=== PATIENT | female | born 1955 | race Caucasian/White ===

== ENCOUNTER → 2024-05-29 | Outpatient (CLI) | payer MEDICARE, SELFPAY ==
[2024-05-29 09:15] LABS: Alanine Aminotransferase 23 U/L (10-49); Albumin, Serum 4.5 gm/dL (3.4-4.8); Alkaline Phosphatase 77 U/L (46-116); Anion Gap 8 (7-16); Aspartate Amino Transferase 24 U/L (0-34); BUN/Creatinine Ratio 20 Ratio (12-20); Bilirubin,Total 0.5 mg/dL (0.3-1.2); Blood Urea Nitrogen 14 mg/dL (9-23); Calcium 9.6 mg/dL (8.3-10.6); Calcium (Corrected) 9.6 mg/dL (8.5-10.1); Carbon Dioxide 26.6 mMol/L (20.0-31.0); Cardiac Risk Estimate 4.3 RATIO (3.7-5.6); Chloride 112 mMol/L (98-107); Cholesterol 146 mg/dL (132-200); Creatinine (Component) 0.7 mg/dL (0.6-1.3); Globulin 2.2 gm/dL (2.3-3.5); Glucose 94 mg/dL (74-106); HDL Cholesterol 34 mg/dL (40-60); LDL Cholesterol,Calculated 67 mg/dL (0-130); Osmolality,Calculated 292 (275-295); Potassium 4.4 mMol/L (3.4-5.1); Sodium 147 mMol/L (136-145); Total Protein 6.7 gm/dL (5.7-8.2); Triglycerides 225 mg/dL (30-150); eGFR > 60 See Note
[2024-05-29 11:50] LABS: OBS Performed By LAB; OBS QC OK? Yes
[2024-05-29 14:32] LABS: Occult Blood, Stool Negative (Negative)
[2024-05-29 14:33] LABS: OBS Developer Lot # 551749
== END | disposition home or self-care (01) ==
LOC: COPL 06:38
PROVIDERS: PCP Family Medicine; Referring Provider Family Medicine; Visit Provider Family Medicine
DX: Z13.1 Encounter for screening for diabetes mellitus (principal); Z12.11 Encounter for screening for malignant neoplasm of colon; E78.1 Pure hyperglyceridemia
CPT/HCPCS: 36415; 80053; 80061; 82270

== ENCOUNTER → 2024-07-05 | Outpatient (BNVA) | payer MEDICARE, SELFPAY | END | disposition home or self-care (01) | PROVIDERS: PCP Family Medicine; Referring Provider Family Medicine; Visit Provider Urology | DX: N39.46 Mixed incontinence (principal); Z87.440 Personal history of urinary (tract) infections; I10 Essential (primary) hypertension; E66.9 Obesity, unspecified; Z68.29 Body mass index [BMI] 29.0-29.9, adult; E78.00 Pure hypercholesterolemia, unspecified | CPT/HCPCS: 81003; 99212; G0463 ==

== ENCOUNTER → 2024-12-06 | Outpatient (BNVA) | payer MEDICARE, SELFPAY | END | disposition home or self-care (01) | PROVIDERS: PCP Family Medicine; Referring Provider Family Medicine; Visit Provider Urology | DX: N39.46 Mixed incontinence (principal); N39.0 Urinary tract infection, site not specified; I10 Essential (primary) hypertension; E66.9 Obesity, unspecified; Z68.25 Body mass index [BMI] 25.0-25.9, adult; Z98.84 Bariatric surgery status | CPT/HCPCS: 81003; 99212; G0463 ==

== ENCOUNTER → 2025-01-01 | Outpatient (CLI) | payer MEDICARE, SELFPAY ==
--- NOTE | 2025-01-01 14:00 | XR_ITS ---
Examination: Breast ultrasound complete, bilateral Date and time of exam: January 01, 2025, 1342 hours, comparison January 08, 2024 INDICATIONS: Mammogram December 29, 1999 2415 mm nodule outer left breast nipple level on the MLO view Technique: Real-time grayscale ultrasonographic imaging bilateral breasts, including all 4 quadrants as well as nipple retroareolar and axillary regions. Findings: Sonographic images right breast 4:00 glandular tissue 10:00 cyst 3 x 3 mm 3.6 cm axillary lymph node Sonographic images left breast 12:00 cyst 3 x 3 mm 3:00 nodule lobular margins 5 x 7 mm 4:00 glandular tissue 11:00 cyst 3 x 3 mm IMPRESSION: BI-RADS Category 3: Probably benign findings 1 additional 6-month bilateral breast sonography follow-up is needed to document stability of glandular tissue and nodules described above
--- NOTE | 2025-01-01 15:00 | XR_ITS ---
Examination: Diagnostic digital mammography, bilateral Computer aided detection 3-D breast Tomosynthesis, bilateral Date and time of exam: January 01, 2025, 1406 hours, compared to mammograms dating to December 23, 2021 INDICATIONS: 15 mm nodule outer left breast on mammogram December 22, 2022 Technique: Nonmagnified MLO, CC views of the breasts to been obtained, reconstructed from 3-D Tomosynthesis images. R2 computer aided detection program utilized for evaluation of suspicious masses and/or abnormal calcifications. 3-D Tomosynthesis images obtained. Findings: The breasts are heterogeneously dense, which may obscure small masses Benign calcifications 3:00 nodule left breast 7 mm Impression: BI-RADS Category 3: Probably benign findings Recommend 1 additional 6-month left mammogram follow-up to document stability of 3:00 nodule described above.
== END | disposition home or self-care (01) ==
PROVIDERS: PCP Family Medicine; Referring Provider Family Medicine; Visit Provider Family Medicine
DX: R92.333 Mammographic heterogeneous density, bilateral breasts (principal); N63.25 Unspecified lump in the left breast, overlapping quadrants
CPT/HCPCS: 76641; 77062; 77066; G0279